=== PATIENT | female | born 1945 | race Caucasian/White ===

== ENCOUNTER 2018-08-10 21:32 | Emergency (ER) | payer OTHER, BC ==
[~2018-08-10] VITALS: Ht 167.6 cm; Wt 90.7 kg
--- OUTSIDE RECORDS SUMMARY | 2018-08-10 21:37 | XMS REPORT ---
Author Author ANGLE MONTANO [facility] Address [address] [place] [address] Care Team Providers Care Electrical Research Engineer Name Role Phone ANGLE MONTANO Unavailable PROBLEMS Type Condition ICD9-CM Code [id number] Code Onset Dates Condition Status SNOMED Code Problem Need for prophylactic vaccination and inoculation, Influenza V04.81 Active 225785864 Problem ZOSTAVAX DX V05.8 Active 28866725 Problem DTAP TEST V06.1 Active ALLERGIES No Information ENCOUNTERS Encounter Location Date Diagnosis [facility] [id number] [place] [address] [id number] Jul, Encounter for immunization Z23 [facility] [id number] [place] [address] [phone] Jun, Encounter for immunization Z23 [facility] [address] [phone] Jun, Encounter for immunization Z23 [facility] [id number] [place] [address] [phone] Jun, [facility] [id number] [place] [phone]- [phone] Jun, [facility] [id number] [place] [address] [phone] Jun, [facility] [id number] [place] [address]- [phone] Jun, [facility] [id number] [place] [address] [phone] Nov, [facility] [id number] [place] [address] [phone] Sep, [facility] [address] [facility] [id number] [place] [phone] Jun, [facility] [address] [facility] [id number] [place] [address] Jun, IMMUNIZATIONS Vaccine Route Administration Date Status FLUARIX QUAD (3 AND UP) 2016 IM Intramuscular Jul 29, 2017 Administered SOCIAL HISTORY Never Assessed REASON FOR VISIT Flu shot Shania DOWD PLAN OF CARE VITAL SIGNS MEDICATIONS Unknown Medications RESULTS No Results PROCEDURES Procedure Date Ordered Result Body Site FLUARIX QUAD (3 AND UP) 2017 Jul 29, 2017 SINGLE IMMUNIZATION ADMIN Jul 29, 2017 INSTRUCTIONS MEDICATIONS ADMINISTERED No Known Medications
--- OUTSIDE RECORDS SUMMARY | 2018-08-10 21:37 | XMS REPORT ---
Author Author KERRY BUSTAMANTE Organization [facility] Address [address] [place] [address] Care Team Providers Care Training And Development Rep Name Role Phone KERRY BUSTAMANTE Unavailable PROBLEMS Type Condition ICD9-CM Code TCF43-BO Code Onset Dates Condition Status SNOMED Code Problem Need for prophylactic vaccination and inoculation, Influenza V04.81 Active 517185488 Problem ZOSTAVAX DX V05.8 Active 66870512 Problem DTAP TEST V06.1 Active ALLERGIES No Information ENCOUNTERS Encounter Location Date Diagnosis [facility] [id number] [place] [phone] Jun, Encounter for immunization Z23 [facility] [id number] [place] [address] [phone] Jun, Need for shingles vaccine Z23 and Need for vaccination with 13-polyvalent pneumococcal conjugate vaccine Z23 [facility] [id number] [place] [address] [phone] Jul, Encounter for immunization 23 [facility] [address] [phone] Jun, Encounter for immunization 23 [facility] [id number] [place] [address] [phone] Jun, Encounter for immunization 23 [facility] [id number] [place] [phone] Jun, [facility] [id number] [place] [address] [phone] Jun, [facility] [id number] [place] [address] [phone] Jun, [facility] [address] [facility] [id number] [place] [address] Jun, [facility] [address] [facility] [id number], [place] [address] Nov, [facility] [address] [facility] [id number], [place] [address] Sep, [facility] [address] [facility] [id number], [place] [address] 16 Jun, 2012 [facility] [address] [facility] [id number][place] [address] 16 Jun, 2012 IMMUNIZATIONS Vaccine Route Administration Date Status SHINGRIX IM Intramuscular Jul 14, 2018 Administered FLULAVAL QUAD 0.5ML (6 MO & UP) 2018 IM Intramuscular Jul 14, 2018 Administered PCV 13 IM Intramuscular Jul 14, 2018 Administered SOCIAL HISTORY Never Assessed REASON FOR VISIT Shingles injection PLAN OF CARE VITAL SIGNS MEDICATIONS Unknown Medications RESULTS No Results PROCEDURES Procedure Date Ordered Result Body Site SHINGRIX Jul 14, 2018 PCV 13 Jul 14, 2018 SINGLE IMMUNIZATION ADMIN Jul 14, 2018 FLULAVAL QUAD 0.5ML (6 MO AND UP) 2018 Jul 14, 2018 IMMUNIZATION ADMIN, EACH ADD (please include units) Jul 14, 2018 INSTRUCTIONS MEDICATIONS ADMINISTERED No Known Medications
--- OUTSIDE RECORDS SUMMARY | 2018-08-10 21:37 | XMS REPORT ---
Author Author ANGLE MONTANO [facility] eClinical[employer] Address Unknown Phone Unavailable Care Team Providers Care Drop Shipment Clerk Name Role Phone ANGLE MONTANO CP Unavailable Allergies No Known Allergies Problems Problem Type Condition Code Onset Dates Condition Status Problem Need for prophylactic vaccination and inoculation, Influenza V04.81 Active Problem DTAP TEST V06.1 Active Problem ZOSTAVAX DX V05.8 Active Assessment Encounter for immunization Z23 Active Medications No Known Medications Procedures Procedure Coding System Code Date SINGLE IMMUNIZATION ADMIN CPT-4 38627 Jul 16, 2016 FLUARIX QUAD P-FREE 3 AND UP .50 2015 CPT-4 66494 Jul 16, 2016 Results No Known Results Immunizations Vaccine Administration Date FLUARIX QUAD P-FREE 3 AND UP .50 2015Jul 16, 2016 Summary Purpose eClinicalWorks Submission
--- OUTSIDE RECORDS SUMMARY | 2018-08-10 21:37 | XMS REPORT | Continuity of Care Document ---
Author Author [facility] Address Unknown Phone Unavailable Allergies There is no data. Medications There is no data. Problems Date Dx Coded Attending Type Code Diagnosis Diagnosed By 07/07/2012 V06.1 TDAP DX 07/07/2012 V06.1 TDAP DX 07/07/2012 RAJOTTE GLASS MECHANIC, ANGLE A V06.1 TDAP DX 07/07/2012 RAJOTTE GLASS MECHANIC, ANGLE A V06.1 TDAP DX 10/06/2012 V04.81 FLU DX (3 YRS AND ABOVE, IM) 10/06/2012 V04.81 FLU DX (3 YRS AND ABOVE, IM) 10/06/2012 RAJOTTE GLASS MECHANIC, ANGLE A V04.81 FLU DX (3 YRS AND ABOVE, IM) 10/06/2012 RAJOTTE GLASS MECHANIC, ANGLE A V04.81 FLU DX (3 YRS AND ABOVE, IM) 11/24/2012 V05.8 ZOSTAVAX DX 11/24/2012 RAJOTTE GLASS MECHANIC, ANGLE A V05.8 ZOSTAVAX DX 11/24/2012 RAJOTTE GLASS MECHANIC, ANGLE A V05.8 ZOSTAVAX DX 09/07/2015 MAILE AVILA DO Ot E28.319 09/07/2015 MAILE AVILA DO Ot Z12.31 09/07/2015 MAILE AVILA DO Ot Z13.820 Procedures There is no data. Results There is no data. Encounters ACCT No. Visit Date/Time Discharge Status Pt. Type Provider Facility Loc./Unit Complaint [id number] 06/28/2014 15:17:00 06/28/2014 23:59:59 CLS Outpatient ANGLE MONTANO APRN [id number] 07/13/2013 15:40:00 07/13/2013 23:59:59 CLS Outpatient ANGLE MONTANO APRN A [id number] 11/24/2012 09:07:00 11/24/2012 23:59:59 CLS Outpatient [id number] 10/06/2012 11:05:00 10/06/2012 23:59:59 CLS Outpatient [id number] 08/24/2015 10:24:00 08/24/2015 23:59:59 CLS Outpatient MAILE AVILA DO [facility] [id number] 09/20/2013 07:39:00 09/20/2013 23:59:59 CLS Outpatient
--- OUTSIDE RECORDS SUMMARY | 2018-08-10 21:37 | XMS REPORT ---
Author Author ANGLE MONTANO [facility] eClinicalWorks Address Unknown Phone Unavailable Care Team Providers Care Machinist Mate Name Role Phone ANGLE MONTANO Unavailable Allergies No Known Allergies Problems Problem Type Condition Code Onset Dates Condition Status Problem Need for prophylactic vaccination and inoculation, Influenza V04.81 Active Problem DTAP TEST V06.1 Active Problem ZOSTAVAX DX V05.8 Active Assessment Encounter for immunization Z23 Active Medications No Known Medications Procedures Procedure Coding System Code Date SINGLE IMMUNIZATION ADMIN CPT-4 81440 Jun 29, 2015 FLUARIX QUAD (3 & UP)-GSK-2014 CPT-4 73202 Jun 29, 2015 Results No Known Results Immunizations Vaccine Administration Date FLUARIX QUAD (3 & UP)-GSK-2014Jun 29, 2015 Summary Purpose eClinicalWorks Submission
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
[2018-08-11 01:41] LABS: HEMOGLOBIN 12.7 G/DL (11.5-16.0); MEAN PLATELET VOLUME 9.1 FL (7.4-10.4); RED BLOOD COUNT 4.08 10^6/uL (4.35-5.85); WHITE BLOOD COUNT 5.6 10^3/uL (4.3-11.0)
[2018-08-11 01:59] LABS: ALANINE AMINOTRANSFERASE 14 U/L (0-55); ALBUMIN 4.1 GM/DL (3.2-4.5); ALKALINE PHOSPHATASE 59 U/L (40-136); BILIRUBIN,TOTAL 0.4 MG/DL (0.1-1.0); BUN/CREATININE RATIO 26; CALCIUM 9.2 MG/DL (8.5-10.1); CARBON DIOXIDE 24 MMOL/L (21-32); CHLORIDE 108 MMOL/L (98-107); CREATININE SERUM 0.82 MG/DL (0.60-1.30); GFR ESTIMATED > 60; GLUCOSE 105 MG/DL (70-105); SODIUM 142 MMOL/L (135-145); TOTAL PROTEIN 6.7 GM/DL (6.4-8.2)
[2018-08-11 02:22] LABS: BILIRUBIN,URINE NEGATIVE (NEGATIVE); CLARITY,URINE CLEAR; COLOR,URINE YELLOW; GLUCOSE, URINE (UA) NEGATIVE (NEGATIVE); KETONES,URINE NEGATIVE (NEGATIVE); LEUKOCYTE ESTERASE ,URINE NEGATIVE (NEGATIVE); NITRITE,URINE NEGATIVE (NEGATIVE); PH,URINE 5 (5-9); PROTEIN,URINE NEGATIVE (NEGATIVE); UROBILINOGEN,URINE NORMAL (NORMAL)
[2018-08-11 02:29] LABS: BACTERIA,URINE NEGATIVE /HPF
[2018-08-11] MEDS ORDERED: CYCL10TA9 PO (03:54)
[2018-08-11 04:03] VITALS: BP 144/84
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
== END 2018-08-11 04:03 | disposition home or self-care (01) ==
LOC: EDUNIT# 21:32 → ER 21:33
DX: S16.1XXA Strain of muscle, fascia and tendon at neck level, initial encounter (principal); M25.511 Pain in right shoulder; M25.561 Pain in right knee; R40.2142 Coma scale, eyes open, spontaneous, at arrival to emergency department; R40.2252 Coma scale, best verbal response, oriented, at arrival to emergency department; R40.2362 Coma scale, best motor response, obeys commands, at arrival to emergency department; V49.40XA Driver injured in collision with unspecified motor vehicles in traffic accident, initial encounter; Y92.410 Unspecified street and highway as the place of occurrence of the external cause
CPT/HCPCS: 36415; 70450; 72125; 73030; 73562; 80053; 80320; 81000; 85027

== ENCOUNTER → 2021-05-22 | Outpatient (CLI) | payer BC ==
[~2021-05-22] MED LIST: CYCL10TA9 PO
--- NOTE | 2021-05-22 12:53 | Diagnostic Imaging Report ---
INDICATION: Routine screening. COMPARISON: 08/24/2015. TECHNIQUE: 2D and 3D bilateral screening mammography was performed with CAD. FINDINGS: Both breasts are heterogeneously dense, limiting the sensitivity of mammography. Numerous calcifications in the medial right breast are again noted. The benign nodular density in the outer left breast appears stable, again most consistent with an intraparenchymal lymph node. There are several circumscribed densities in the retroareolar left breast which have the appearance of cysts. Densities in the immediate retroareolar region may represent ductal ectasia. A rounded density approximately 5-7 cm from the nipple cephalad has the appearance of a cyst. Further evaluation of both of these areas with ultrasound is recommended. No suspicious microcalcifications are seen. The axillae are unremarkable. IMPRESSION: There are circumscribed densities in the retroareolar left breast as well as the upper left breast approximately 5 to 7 cm from the nipple. This has the appearance of ductal ectasia and cysts. Further evaluation with ultrasound is recommended. No other significant abnormality is seen. ACR BI-RADS Category 0: Incomplete. (Needs additional imaging evaluation). Result letter will be mailed to the patient. Note: At least 10% of breast cancer is not imaged by mammography. Dictated by: Dictated on workstation # [id number]
== END ==
LOC: RAD 09:15
PROVIDERS: ATTEND Internal Medicine
DX: Z12.31 Encounter for screening mammogram for malignant neoplasm of breast (principal)
CPT/HCPCS: 77063; 77067

== ENCOUNTER → 2021-06-07 | Outpatient (CLI) | payer BC ==
--- NOTE | 2021-06-07 13:11 | Diagnostic Imaging Report ---
INDICATION: Left breast nodules. Correlation is made with screening mammogram from 05/22/2021. Interrogation of the upper left breast as well as retroareolar left breast was performed. There is a cyst at the 12:00 location of the left breast measuring approximately 8 mm x 9 mm in diameter. There is a small cyst at the 1:00 location measuring 4 mm in diameter. A cyst at 1:00 retroareolar location measures approximately 9 mm x 5 mm. There is some ductal ectasia in the retroareolar left breast. No solid masses are detected. IMPRESSION: BI-RADS Category 2 Ductal ectasia as well as benign-appearing breast cysts, likely accounting for the mammographic densities. Patient may return to routine annual screening mammography. ACR BI-RADS Category 2: Benign findings. Result letter will be mailed to the patient. Note: At least 10% of breast cancer is not imaged by mammography. Dictated by: Dictated on workstation # [id number]
== END ==
LOC: RAD 12:30
PROVIDERS: ATTEND Internal Medicine
DX: N63.20 Unspecified lump in the left breast, unspecified quadrant (principal)
CPT/HCPCS: 76642

== ENCOUNTER → 2022-06-28 | Outpatient (CLI) | payer BC, MEDICARE ==
[~2022-06-28] MED LIST changes: +CYCL10TA25 PO; -CYCL10TA9 PO
--- NOTE | 2022-06-28 15:31 | Diagnostic Imaging Report ---
INDICATION: Routine screening. COMPARISON: 05/22/2021 and 08/24/2015. TECHNIQUE: 2D and 3D bilateral screening mammography was performed with CAD. FINDINGS: Both breasts are heterogeneously dense, limiting the sensitivity of mammography. The fibronodular parenchymal pattern is stable. There appears to be waxing and waning of densities consistent with cysts. No spiculated mass or malignant appearing microcalcifications are seen. Numerous calcifications in the right breast appear stable. Axillae are unremarkable. IMPRESSION: No mammographic features suspicious for malignancy are identified. ACR BI-RADS Category 2: Benign findings. Result letter will be mailed to the patient. Note: At least 10% of breast cancer is not imaged by mammography. Dictated by: Dictated on workstation # [id number]
== END ==
LOC: RAD 15:00
PROVIDERS: ATTEND Internal Medicine
DX: Z12.31 Encounter for screening mammogram for malignant neoplasm of breast (principal)
CPT/HCPCS: 77063; 77067

== ENCOUNTER → 2023-07-04 | Outpatient (CLI) | payer MEDICARE, OTHER ==
--- NOTE | 2023-07-04 10:49 | Diagnostic Imaging Report ---
3-D bilateral screening mammogram with with CAD. The current study was also evaluated with a Computer Aided Detection (CAD) system. This study was compared to the prior exam of 06/28/2022 and 05/22/2021. At this time there are no current complaints. Defibrillator tissue in both breasts is heterogeneously dense. This does limit the sensitivity of this exam. Overall, there is no appear to have been any significant change. Diffuse microcalcifications are again seen in the right breast. There are also small nodular asymmetries in each breast. These seems stable when compared to the prior exam. There is no primary or secondary sign of malignancy noted. IMPRESSION: 1. There is no evidence of malignancy. ACR BI-RADS Category 1: Negative. Result letter will be mailed to the patient. Note: At least 10% of breast cancer is not imaged by mammography. Dictated by: Dictated on workstation # [id number]
== END ==
LOC: RAD 09:00
PROVIDERS: ATTEND Internal Medicine
DX: Z12.31 Encounter for screening mammogram for malignant neoplasm of breast (principal)
CPT/HCPCS: 77063; 77067

== ENCOUNTER → 2023-08-19 | Outpatient (CLI) | payer MEDICARE, OTHER ==
--- NOTE | 2023-08-19 09:48 | Diagnostic Imaging Report ---
INDICATION: Postmenopausal screening COMPARISON: 08/24/2015 FINDINGS: AP Spine L1-L4: [BMD (g/cm2): 1.328] [T-Score: 1.1] [Z-Score: 1.7] [BMD Previous: 1.377] [BMD % Change: -3.6*] LT Hip Neck: [BMD (g/cm2): 1.001] [T-Score: -0.3] [Z-Score: 1.0] LT Hip Total: [BMD (g/cm2):1.151] [T-Score:1.1] [Z-Score: 2.1] [BMD Previous: 1.170] [BMD % Change: -1.6] RT Hip Neck: [BMD (g/cm2):1.004] [T-Score:-0.2] [Z-Score:1.0] RT Hip Total: [BMD (g/cm2):1.144] [T-score:1.1] [Z-Score:2.1] [BMD Previous:1.175] [BMD % Change:-2.6] *Indicates significant change from prior examination based on 95% confidence level. World Health Organization criteria for BMD interpretation classify patients as Normal (T-score at or above -1.0), Osteopenic (T-score between -1.0 and -2.5) or Osteoporotic (T-score at or below -2.5). LIMITATIONS AND MODIFICATION: None. FRACTURE RISK (FRAX SCORE): The ten year probability of (%): Major Osteoporotic Fracture: [NA] Hip Fracture: [NA] IMPRESSION: 1. Normal bone mineral density. 2. no significant interval change 3. See below National Osteoporosis Foundation guidelines on when to potentially initiate pharmacologic therapy. Based on the National Osteoporosis Foundation Guidelines, pharmacologic treatment should be initiated in any of the following, unless clinical conditions suggest otherwise: * Any patient with prior fragility fracture of the hip or vertebrae. A spine fracture indicates 5X risk for subsequent spine fracture and 2X risk for subsequent hip fracture. * Osteoporosis (T-score <-2.5). * Postmenopausal women and men age 50 and older with low bone mass/osteopenia (T-score between -1.0 and -2.5) by DXA and 10-year major osteoporotic fracture greater than 20% or a 10-year probability of hip fracture greater than 3%. These fracture risks are supplied above in the FRAX score, if applicable. * Clinician judgement and/or patient preferences may indicate treatment for people with 10-year fracture probabilities above or below these levels. Dictated by: Dictated on workstation # [id number]
== END ==
LOC: RAD 09:09
PROVIDERS: ATTEND Internal Medicine
DX: M81.0 Age-related osteoporosis without current pathological fracture (principal); Z78.0 Asymptomatic menopausal state
CPT/HCPCS: 77080